=== PATIENT | male | born 1990 | race Caucasian/White ===

== ENCOUNTER 2019-10-04 10:49 | Emergency (ER) | payer MEDICAID, SELFPAY ==
--- NOTE | ~2019-10-04 | CT_ITS ---
EXAMINATION: CT abdomen pelvis w con DATE: 10/04/2019 12:14 INDICATION: Periumbilical abdominal pain. Nausea and vomiting and fever. TECHNIQUE: Computed tomography (CT) of the abdomen and pelvis was performed with 100 Omnipaque 350 in travenous contrast. Automated exposure control and iterative reconstruction technique were employed. The dose-length product was 440.20 mGy-cm. COMPARISON: Chest CT 12/28/2017 FINDINGS: The visualized portions of the lung bases demonstrate mild atelectasis. No pleural effusion . The heart size is normal. No pericardial effusion. The liver, gallbladder, spleen, pancreas, adrena l glands, and right kidney are normal. There is cortical thinning of left kidney. There is a 9 mm cys t in left kidney. There are no dilated loops of bowel. The appendix is normal. There are no pathologi rosalinda enlarged lymph nodes. There is no free intraperitoneal fluid. There is a benign bone island in left ilium. There is mild lumbar spondylosis. IMPRESSION: 1. No etiology for the patient's symptoms. Reviewed, dictated and finalized at location A.
[2019-10-04 11:04] VITALS: BP 129/80; PULSE 116; RESP 32; TEMP 37; O2SAT 100
[2019-10-04] MEDS: ONDANSETRON INJ 4 MG/2 ML VIAL IV PUSH ×2 (11:13→12:23)
[2019-10-04] MEDS: SODIUM CHLORIDE 0.9% IV 1,000 ML 999 ML IV CONT ×2 (11:14→11:24)
[2019-10-04] MEDS: LORAZEPAM INJ 2 MG/ML VIAL 1 MG IV PUSH (11:24)
[2019-10-04 11:33] LABS: Hemoglobin 14.6 g/dL (14.0-18.0); Mean Corpuscular HGB Conc 35.6 g/dL (32.0-36.0); Mean Corpuscular Hemoglobin 27.8 pg (27.0-31.0); Mean Corpuscular Volume 78.1 fL (78.0-102.0); Mean Platelet Volume 10.2 fl (8.7-11.0); Platelet Count Result 244 K/mm3 (150-420); Red Blood Count 5.25 M/mm3 (4.70-6.10); Red Cell Distribution Width 11.9 % (11.6-14.4); White Blood Count 10.3 K/mm3 (4.8-10.8)
[2019-10-04 11:49] LABS: Alanine Aminotransferase 16 U/L (16-63); Albumin Level 4.2 g/dL (3.4-5.0); Alkaline Phosphatase 76 U/L (46-116); Anion Gap 17.8 mmol/L (7-16); Aspartate Amino Transferase 15 U/L (15-37); Bilirubin,Total 0.6 mg/dL (0.00-1.00); Blood Urea Nitrogen 32 mg/dL (7-18); Calcium 8.9 mg/dL (8.5-10.1); Carbon Dioxide 23 mmol/L (21-32); Chloride 99 mmol/L (98-108); Estimated Glomerular Filt Rate 42; Glucose 96 mg/dL (70-99); Osmolality Calculated 288 mOsm/kg (285-295); Potassium 3.8 mmol/L (3.5-5.1); Sodium 136 mmol/L (136-145); Total Protein 7.6 g/dL (6.4-8.2)
[2019-10-04 11:52] VITALS: BP 125/74; PULSE 97; RESP 24; O2SAT 97
[2019-10-04 11:54] LABS: Add Urine Microscopic? YES; Appearance Urine Sl Cloudy (Clear); Bilirubin Urine 2+ (Negative); Blood Urine Negative (Negative); Color Urine Amber (Yellow); Glucose Urine UA Negative (Negative); Ketones Urine 3+ (Negative); Leukocyte Esterase Ur Negative (Negative); Nitrate Urine Negative (Negative); Protein Urine 1+ (Negative); Specific Grav Ur >= 1.030 (1.010-1.020); pH Urine 5.5 (5.0-8.0)
[2019-10-04 12:00] LABS: Amphetamine Screen Urine Negative (Negative); Barbiturate Screen Urine Negative (Negative); Benzodiazepines Screen Urine Negative (Negative); Cannabinoid Screen Urine Positive (Negative); Cocaine Screen Urine Negative (Negative); Methadone Screen Urine Negative (Negative); Opiate Screen Urine Negative (Negative); Phencyclidine Screen Urine Negative (Negative); RBC Urine 0-2 /hpf (0-2)
[2019-10-04 12:01] LABS: Bacteria Urine 4+ /hpf; Mucus Urine Heavy /lpf; Squamous Epithelial Cell Urine Occasional /hpf (Few); WBC Urine 0-3 /hpf (0-3)
[2019-10-04 12:02] LABS: Hyaline Casts Urine 15-19 /lpf
--- NOTE | 2019-10-04 12:23 | ED.NAVMDI ---
HPI - Nausea/Vomiting/Diarrhea General Chief complaint: Nausea/Vomiting/Diarrhea Stated complaint: cant keep anything down, Cold Source: patient Mode of arrival: ambulatory History of Present Illness HPI Narrative: This is a 29-year-old male presents with chills with nausea vomiting few episodes of vomiting over the last couple of days, and unable to keep food down. The patient is on Suboxone for opioid abuse and recently released from long-term. Episodes of nausea vomiting and few episodes of diarrhea occurred prior to him unable to keep his Suboxone down p.o.. A patient having some dysuria with epigastric abdominal pain with no radiation others currently no fever but has some chills with no flank pain no chest pain no shortness of breath. MD elicited complaint: nausea, vomiting and abdominal pain Pertinent past history: anorexia Onset (ago): day(s) Description of vomiting: watery Associated nausea: Yes Associated abdominal pain: Yes Location of pain: epigastric Radiation: epigastric Pain consistency: intermittent Severity: mild Quality: cramping Exacerbating factors: eating Relieving factors: none Associated symptoms: fever/chills and nausea/vomiting Related Data Home Medications Medication Instructions Recorded Confirmed buprenorphine-naloxone [Suboxone] 1 film BUCCAL BID 10/04/19 10/04/19 Allergies Allergy/AdvReac Type Severity Reaction Status Date / Time codeine Allergy Verified 11/09/11 00:33 Review of Systems Review of Systems: All systems reviewed & are unremarkable except as noted in HPI and below PMFSH Past Medical History Medical History Opioid abuse Exam Const: General: no acute distress and alert Orientation/consciousness: patient oriented x3 HENMT: Head: normal to inspection Eyes: Cornea: corneas normal Pupils: Equal, round and reactive pupils present Neck: Neck: normal visual inspection Chest: Chest palpation & inspection: normal inspection of the chest Resp: Effort & Inspection: normal respiratory effort Auscultation: clear to auscultation bilaterally Cardio: Rate: regular rate Rhythm: regular rhythm GI: GI Palp: Yes Soft to palpation and Yes Tenderness to palpation present (GI) ( epigastric) Percussion: Yes normal to percussion : General: Yes no CVA tenderness Testes: Testes normal Back/Spine/Pelvis: Back: no CVA tenderness Skin: General skin exam: normal color Rashes: no rashes Neuro: General: patient oriented x3, moves all extremities, no meningeal signs and no focal motor deficits Extrem: General: normal to inspection Psych: Mental Status: mental status grossly normal Thought content: Yes Normal thought content present Course Course Emergency Course: patient's symptoms have improved after IV fluids and Zofran, explained why he received ceftriaxone, the patient was comfortable going home with advice to start clear liquids and to take medication like Zofran as prescribed and follow-up with primary care physician if symptoms persist or worsen Vital Signs Vital signs: Vital Signs Temperature 37.0 C 10/04/19 11:04 Pulse Rate 116 H 10/04/19 11:04 Respiratory Rate 32 H 10/04/19 11:04 Blood Pressure 129/80 10/04/19 11:04 Pulse Oximetry 100 10/04/19 11:04 Temperature 37.0 C 10/04/19 11:04 Pulse Rate 97 10/04/19 11:52 Respiratory Rate 24 H 10/04/19 11:52 Blood Pressure 125/74 10/04/19 11:52 Pulse Oximetry 97 10/04/19 11:52 MDM - Nausea/Vomiting/Diarrhea Lab Data Result diagrams: 10/04/19 11:27 10/04/19 11:27 Labs: Lab Results 10/04/19 10/04/19 10/04/19 Range/Units 11:27 11:27 11:50 WBC 10.3 (4.8-10.8) K/mm3 RBC 5.25 (4.70-6.10) M/mm3 Hgb 14.6 (14.0-18.0) g/dL Hct 41.0 (40.0-54.0) % MCV 78.1 (78.0-102.0) fL MCH 27.8 (27.0-31.0) pg MCHC 35.6 (32.0-36.0) g/dL RDW 11.9 (11.6-14.4) % Plt Count 24
--- NOTE | 2019-10-04 12:29 | PC.NURSE ---
PT REPORTS FEELING MUCH RELIEF OF SYMPTOMS SINCE ARRIVAL. ERP AT BEDSIDE TO DISCUSS DISPOSITION
[2019-10-04 13:00] VITALS: BP 137/85; PULSE 102; O2SAT 97
== END 2019-10-04 13:01 | disposition home or self-care (01) ==
PROVIDERS: Emergency Provider Emergency Medicine
DX: K52.9 Noninfective gastroenteritis and colitis, unspecified (principal); N39.0 Urinary tract infection, site not specified
CPT/HCPCS: 36415; 74177; 80053; 80307; 81001; 85027; 87040; 87086; 96361; 96365; 96375; 96376; 99283; 99284; J0696; J2060; J2405; J7030; Q9965

== ENCOUNTER 2021-05-19 14:24 | Emergency (ER) | payer BC, SELFPAY ==
--- NOTE | ~2021-05-19 | US_ITS ---
EXAMINATION: US scrotum doppler EXAM DATE: 05/19/2021 15:40 INDICATION: right testicular pain . TECHNIQUE: Multiple grayscale and Doppler images of the testicles and scrotum were obtained bilateral ly. There is no prior study for comparison. FINDINGS: Right testicle measures 4.1 x 2.2 x 3.6 cm and is morphologically normal. Low resistance Doppler betina w confirmed. There is 7 mm cyst in the epididymis. There is no hydrocele or varicocele. Left testicle measures 3.7 x 1.7 x 2.9 cm and is morphologically normal. Low resistance Doppler flow confirmed. The epididymis is unremarkable. There is a moderate-sized varicocele, vessel diameter up to about 4 mm. IMPRESSION: 1. Moderate-sized left-sided varicocele. 2. Symmetric testicular vascularity. Reviewed, dictated and finalized at location G. AL CLERK
--- NOTE | ~2021-05-19 | CT_ITS ---
EXAMINATION: CT abdomen pelvis w con DATE: 05/19/2021 16:35 INDICATION: Right lower quadrant abdominal pain for 3 days TECHNIQUE: Computed tomography (CT) of the abdomen and pelvis was performed with 100 cc Omnipaque 350 intravenous contrast. Automated exposure control and iterative reconstruction technique were employe d. Exam dose: 203.06 mGy-cm total exam DLP. COMPARISON: 10/04/2019 CT abdomen pelvis FINDINGS: Emphysematous changes of the lungs are noted. Normal heart size. No pericardial or pleural effusion. Indeterminate approximately 8 x 11.8 mm hypoattenuating lesion of the right hepatic lobe (series 3 im age 34), possibly a hepatic cyst. No other hepatic space-occupying mass lesion is evident. The gallbladder is contracted. Spleen size is within normal limits. No pancreatic mass lesion, calcif ication or ductal dilatation is evident. Normal morphology of the adrenal glands. The right kidney is unremarkable. Exophytic approximately 1.4 x 1.9 cm left posterior upper pole hyperdense cyst with attenuation of 10 1 Hounsfield units. Indeterminate approximately 12 mm posterolateral mid left renal hypoattenuating lesion, stable since 10/04/2019, probably a renal cyst. No urinary tract calculus or hydroureteronephrosis is noted on either side. Normal caliber of the abdominal aorta. No intraperitoneal or retroperitoneal or pelvic mass lesion or adenopathy or ascites is detected. There is a paucity of intra-abdominal fat; no bowel obstruction, bowel wall thickening, pneumatosis o r intraperitoneal free air is detected. The appendix is not clearly delineated but no apparent inflam matory changes noted in the right lower quadrant or elsewhere in the abdomen. Probable left iliac bone island included skeletal structures are otherwise unremarkable. IMPRESSION: Considerably diminished body fat since 10/04/2019 Probable left renal cysts Appendix is not clearly delineated but no CT evidence of appendicitis is evident Probable hepatic cyst Emphysematous changes of the lungs Reviewed, dictated and finalized at Location A. Reviewed, dictated and finalized at location B. TRONIC DRAFTER IMPRESSION: Considerably diminished body fat since 10/04/2019 Probable left renal cysts Appendix is not clearly delineated but no CT evidence of appendicitis is eviden t Probable hepatic cyst Emphysematous changes of the lungs
[2021-05-19 14:56] VITALS: BP 134/87; PULSE 75; RESP 16; TEMP 36.6; O2SAT 99
[2021-05-19 15:51] LABS: Add Urine Microscopic? NO; Appearance Urine Clear (Clear); Bilirubin Urine Negative (Negative); Blood Urine Negative (Negative); Color Urine Light Yellow (Yellow); Glucose Urine UA Negative (Negative); Ketones Urine Negative (Negative); Leukocyte Esterase Ur Negative (Negative); Nitrate Urine Negative (Negative); Protein Urine Negative (Negative); Urobilinogen Urine 0.2 mg/dL (0.2-1.0)
[2021-05-19 15:55] LABS: Basophils Absolute Auto 0.05 K/mm3 (0.00-0.10); Basophils Percent Auto 0.5 % (0.0-1.0); Eosinophils Absolute Auto 0.11 K/mm3 (0.02-0.50); Eosinophils Percent Auto 1.1 % (1.0-6.0); Hematocrit 37.1 % (40.0-54.0); Hemoglobin 12.5 g/dL (14.0-18.0); Immature Granulocyte Absolute 0.03 K/mm3 (0.00-0.00); Immature Granulocyte Percent A 0.3 % (0.0-0.0); Immature Platelet Fraction Pct 9.7 % (1.0-7.0); Lymphocytes Absolute Auto 1.76 K/mm3 (1.10-4.50); Lymphocytes Percent Auto 17.2 % (18.0-42.0); Mean Corpuscular HGB Conc 33.7 g/dL (32.0-36.0); Mean Corpuscular Hemoglobin 29.1 pg (27.0-31.0); Mean Corpuscular Volume 86.3 fL (78.0-102.0); Mean Platelet Volume 11.4 fl (8.7-11.0); Monocytes Absolute Auto 0.61 K/mm3 (0.10-0.90); Neutrophils Absolute Auto 7.7 K/mm3 (1.7-7.2); Neutrophils Percent Auto 74.9 % (50.0-70.0); Red Cell Distribution Width 12.3 % (11.6-14.4); White Blood Count 10.2 K/mm3 (4.8-10.8)
[2021-05-19] MEDS: SODIUM CHLORIDE 0.9% IV 500 ML 999 ML IV CONT (15:56)
[2021-05-19] MEDS: KETOROLAC (*BKC) 60 MG/2 ML VIAL IM (15:56)
[2021-05-19 15:58] LABS: Platelet Count Result 96 K/mm3 (150-420)
[2021-05-19 16:03] LABS: Alanine Aminotransferase 19 U/L (16-63); Alkaline Phosphatase 63 U/L (46-116); Anion Gap 8 mmol/L (8-16); Aspartate Amino Transferase 17 U/L (15-37); Bilirubin,Total 0.2 mg/dL (0.00-1.00); Blood Urea Nitrogen 11 mg/dL (7-18); Calcium 8.8 mg/dL (8.5-10.1); Carbon Dioxide 29 mmol/L (21-32); Chloride 101 mmol/L (98-108); Estimated CRCL calculation 101 ml/min; Estimated Glomerular Filt Rate > 60; Glucose 89 mg/dL (70-99); Lipase 50 U/L (73-393); Osmolality Calculated 284 mOsm/kg (285-295); Sodium 138 mmol/L (136-145); Total Protein 7.4 g/dL (6.4-8.2)
--- NOTE | 2021-05-19 17:11 | ED.ABDPAIN ---
HPI - Abdominal Pain General Chief Complaint: Urogenital-Male Stated Complaint: pain from rt side towards testicles. Time Seen by Provider: 05/19/21 14:26 Source: patient and RN notes reviewed Mode of arrival: ambulatory Limitations: no limitations History of Present Illness HPI narrative: RLQ abdominal pain with radiation to right testicle x 2days. MD elicited complaint: abdominal pain Pertinent past history: none Onset (ago): day(s) (2) Pain Consistency: constant Location: RLQ and groin Severity: mild Pain scale (0-10): 5 Quality: cramping and aching Radiation: other (to right testicle) Migration to: no migration Exacerbating factors: nothing Relieving factors: nothing Context: denies history of similar episodes Related Data Home Medications Medication Instructions Recorded Confirmed buprenorphine-naloxone [Suboxone] 1 film BUCCAL BID 10/04/19 05/19/21 Allergies Allergy/AdvReac Type Severity Reaction Status Date / Time codeine Allergy Unknown Verified 05/19/21 14:49 Review of Systems Review of Systems: All systems reviewed & are unremarkable except as noted in HPI and below PMFSH Past Medical History Medical History (Updated 05/20/21 @ 07:20 by Kwame Regan MD) Abdominal pain Opioid abuse Right hydrocele Exam Const: General: no acute distress and alert Nutritional Appearance: well nourished Orientation/consciousness: patient oriented x3 Limitations: no limitations HENMT: Head: normal to inspection General nose exam: Normal external nose present and Normal nares present Face and sinus: normal facial exam and sinuses nontender Mouth: Yes lip normal and Yes moist mucous membranes Eyes: Conjunctivae: conjunctivae normal Pupils: Equal, round and reactive pupils present EOM: EOMs intact bilaterally Neck: Neck: normal visual inspection Other: supple neck Chest: Chest palpation & inspection: normal inspection of the chest Resp: Effort & Inspection: normal respiratory effort Auscultation: clear to auscultation bilaterally Cardio: Rate: regular rate Rhythm: regular rhythm GI: GI Palp: Yes Soft to palpation and Yes Tenderness to palpation present (GI) (minimally tender right flank, with no hernia seen and no scrotal or evident) : General: Yes bladder normal to palpation and Yes no CVA tenderness Penis: Yes normal penis Scrotum: scrotum normal Testes: no testicular swelling and no testicular tenderness Back/Spine/Pelvis: Back: no CVA tenderness Skin: General skin exam: normal color Rashes: no rashes Neuro: General: patient oriented x3, moves all extremities, no meningeal signs, no focal motor deficits and CN's II-XI intact bilaterally Extrem: General: normal to inspection and no pedal edema Psych: Appearance: grossly normal and well kempt Mental Status: mental status grossly normal Affect: normal affect Attitude: cooperative Thought content: Yes Normal thought content present Course Course Emergency Course: Pt was stable and pain-free in the ED. Reevaluation(s) Reevaluation #1: VSS. pt ambulated comfortably in the ED. Date: 05/19/21 Time: 16:24 Vital Signs Vital signs: Vital Signs Temperature 36.6 C 05/19/21 14:56 Pulse Rate 75 05/19/21 14:56 Respiratory Rate 16 05/19/21 14:56 Blood Pressure 134/87 05/19/21 14:56 Pulse Oximetry 99 05/19/21 14:56 Temperature 36.6 C 05/19/21 14:56 Pulse Rate 83 05/19/21 17:34 Respiratory Rate 16 05/19/21 17:34 Blood Pressure 122/70 05/19/21 17:34 Pulse Oximetry 96 05/19/21 17:34 MDM - Abdominal Pain Differential Diagnosis Differential diagnosis: Likely abdominal pain, acute appendicitis, calculus of kidney, diverticulitis and small bowel obstruction Medical Records Attestation: I reviewed the patient's medical records. Lab Data Attestation: I reviewed the patient's lab results. Result diagrams: 05/19/21 15:41 05/19/21 15:41 Labs: Lab Results 05/19/21 02/0
[2021-05-19 17:34] VITALS: BP 122/70; PULSE 83; RESP 16; O2SAT 96
== END 2021-05-19 17:33 | disposition home or self-care (01) ==
PROVIDERS: Emergency Provider Emergency Medicine; PCP Nurse Practitioner Family
DX: N43.2 Other hydrocele (principal)
CPT/HCPCS: 36415; 74177; 76870; 80053; 81003; 83690; 85025; 85055; 93976; 96360; 96361; 96372; 99283; 99284; J1885; J7040; Q9967

== ENCOUNTER 2021-12-02 00:16 | Emergency (ER) | payer BC, SELFPAY ==
[2021-12-02 00:16] VITALS: BP 126/100; PULSE 103; RESP 18; TEMP 36.6; O2SAT 100
--- NOTE | 2021-12-02 00:53 | ED.SKABFB ---
HPI - Skin/Abscess/Foreign Bdy General Chief complaint: Unspecified Stated complaint: foot pain Time Seen by Provider: 12/02/21 00:53 Source: patient Mode of arrival: ambulatory Limitations: no limitations History of Present Illness HPI narrative: patient states he was recently treated with scabies on Tuesday now 2 days ago. Now he says that he has a warmer something crawling in his right foot under the skin. He denies any drug abuse however has mannerisms similar to someone who is withdrawing from illicit street drugs. Location: R foot Severity: moderate Pain Consistency: constant Related Data Home Medications Medication Instructions Recorded Confirmed buprenorphine 8 mg-naloxone 2 mg 1 film buccal BID 10/04/19 12/02/21 sublingual film (Suboxone) hydrocortisone 1 % topical cream 1 applic topical DIRECTED 12/02/21 12/02/21 permethrin 5 % topical cream 1 applic topical DIRECTED 12/02/21 12/02/21 sulfamethoxazole 800 1 tablet PO DIRECTED 12/02/21 12/02/21 mg-trimethoprim 160 mg tablet Allergies Allergy/AdvReac Type Severity Reaction Status Date / Time codeine Allergy Vomiting Verified 12/02/21 00:29 Review of Systems Review of Systems: All systems reviewed & are unremarkable except as noted in HPI and below PMFSH Past Medical History Medical History Abdominal pain Opioid abuse Right hydrocele Exam Const: General: healthy appearing, no acute distress and alert Nutritional Appearance: well nourished and thin Orientation/consciousness: patient oriented x3 Limitations: no limitations HENMT: Head: normal to inspection Ears: external ears normal Eyes: Conjunctivae: conjunctivae normal Pupils: Equal, round and reactive pupils present EOM: EOMs intact bilaterally Neck: Neck: normal visual inspection Resp: Effort & Inspection: normal respiratory effort Auscultation: clear to auscultation bilaterally Cardio: Rate: tachycardic Rhythm: regular rhythm GI: Auscultation: normal bowel sounds Back/Spine/Pelvis: Cervical Spine: cervical ROM normal Thoracic/Lumbar Spine: thoraco-lumbar ROM normal Skin: General skin exam: normal color Rashes: other ( Present are excoriated areas on his forearms where he said he had scabies) Other: patient continues to point to an area along the distal 5th metatarsal long the lateral aspect of his right foot. I do not see anything moving I do not see any puncture wound there is no erythema there is no abnormality in the skin whatsoever. Neuro: General: patient oriented x3, moves all extremities, no focal motor deficits and CN's II-XI intact bilaterally Speech: normal speech Gait exam (Neuro): Normal gait present Extrem: General: normal to inspection and no clubbing, cyanosis or edema Psych: Mental Status: mental status grossly normal Affect: normal affect Attitude: cooperative Course Course Emergency Course: Patient seemed upset and angry that I did not believe him that he had something crawling under his skin. I explained that I do not see anything present under the skin of his right foot. There is nothing to treat. He left without signing his papers. Vital Signs Vital signs: Vital Signs Temperature 36.6 C 12/02/21 00:16 Pulse Rate 103 H 12/02/21 00:16 Respiratory Rate 18 12/02/21 00:16 Blood Pressure 126/100 H 12/02/21 00:16 Pulse Oximetry 100 12/02/21 00:16 Oxygen Delivery Room Air 12/02/21 00:16 Temperature 36.6 C 12/02/21 00:16 Pulse Rate 103 H 12/02/21 00:16 Respiratory Rate 18 12/02/21 00:16 Blood Pressure 126/100 H 12/02/21 00:16 Pulse Oximetry 100 12/02/21 00:16 Oxygen Delivery Room Air 12/02/21 00:16 Discharge Plan Discharge Clinical Impression: Formication Patient Disposition: Home, Self-Care Condition: Stable Additional Instructions: see your primary care physician if it does not resolve Prescriptions: No Action b
== END 2021-12-02 01:05 | disposition home or self-care (01) ==
PROVIDERS: Emergency Provider Emergency Medicine; PCP Nurse Practitioner Family
DX: R20.2 Paresthesia of skin (principal)
CPT/HCPCS: 99281